=== PATIENT | male | born 1995 | race Caucasian/White ===

== ENCOUNTER 2024-08-30 03:13 | Observation (INO) ==
--- NOTE | 2024-08-30 03:47 | CONSULTATION NOTE ---
History of Present Illness Admitted From Admitted From:: ER History of Present Illness HPI Comment/Other: 29-year-old male with no significant urological history presents today after using a chain as a urethral sound. This is a chain of silver balls that he plac ed into his urethra. After putting in he was unable to pull him back out again. He is draining urine around the balls continuously. He is in mild discomfort. He took some Tylenol. This is his first time having an issue like this He denies prior medical issues, surgical issues. He last had food about 4 hours ago He is hemodynamically stable and afebrile [facility] Active Problems All Active Problems (Updated 08/30/24 @ 03:46 by Quinton Claudio MD) Urethral foreign body (Acute) Social History Social History Do you feel safe in your home environment?: Yes Suffered physical, verbal, emotional, or financial abuse?: No Meds/Allgy Allergies Allergies Allergy/AdvReac Type Severity Reaction Status Date / Time No Known Drug Allergies Allergy Verified 08/30/24 03:33 Exam Exam Vital Signs: Vital Signs x48h Temp Pulse Resp BP Pulse Ox 08/30/24 03:26 36.0 C L 103 H 18 128/99 H 96 NAD RRR CTA b/l silver balls coming from urethra in chain Conclusion/Plan Problem List (1) Urethral foreign body: Plan: Urethral foreign body. Urinating around the foreign body X-ray of pelvis in AP Admit to urology Pain medications N.p.o. Add-on for open removal of bladder foreign object and urethral foreign object. This is an incision through the abdomen. If this is needed then he will need a catheter afterwards for at least 7 days. We discussed the risks of the procedure including infection, bleeding, injury to adjacent structures, need for additional procedures, failure of therapy, urethral strictures, anesthesia concerns we also discussed ejaculatory risk We also discussed that I will attempt to manipulate the foreign body and remove it without an incision. This might involve a cystoscopy as well. We discussed the risk, benefits, alternatives [place] and [place] and he may have difficulty with his flight status after this for a few weeks We discussed we will review this in the future Qualifiers: Encounter type: initial encounter Qualified Code(s): T19.0XXA - Foreign body in urethra, initial encounter
[2024-08-30] MEDS ORDERED: ACETAMINOPHEN 325 MG TABLET PO PRN (03:48)
[2024-08-30] MEDS ORDERED: ONDANSETRON ODT 4 MG TABLET TL PRN (03:48)
[2024-08-30] MEDS ORDERED: SODIUM CHLORIDE FLUSH 0.9% 10 ML SYRINGE IVP PRN (03:48)
--- NOTE | 2024-08-30 03:48 | ED Physician Documentation ---
History of Present Illness Stated complaint Stated Complaint: Chief complaint Chief Complaint: General History obtained from History obtained from: Patient Additonal information Additional information: Patient comes to the emergency department chief complaint of foreign object stuck in urethra. He was using a urethral sounder in the form of a chain of small metal balls when the chain got stuck. He estimates the chain is about a foot long and he thinks that half of it is still up in his urethra. He denies any bleeding other than some blood tingeing of his urine. He has had urine leakage consistently since the change was in place. He denies any trauma to his penis otherwise. No abdominal pain, fever, or vomiting. He is otherwise healthy. No urologic procedures previously. No other complaints at this time. Meds/Allgy Allergies Allergies Allergy/AdvReac Type Severity Reaction Status Date / Time No Known Drug Allergies Allergy Verified 08/30/24 03:33 PFSH Active Problems All Active Problems (Updated 08/30/24 @ 04:09 by Amanda Decker MD) Urethral foreign body (Acute) Social History Social History Relationship: Do you feel safe in your home environment?: Yes Suffered physical, verbal, emotional, or financial abuse?: No Exam Exam Vital Signs: Vital Signs x48h Temp Pulse Resp BP Pulse Ox 08/30/24 03:26 36.0 C L 103 H 18 128/99 H 96 Constitutional normal general appearance and no apparent distress HENMT normocephalic, head/scalp atraumatic, external nose normal and oral mucous membranes normal Eyes EOMs intact bilaterally Neck/C-Spine visual inspection normal and supple Respiratory normal respiratory effort Gastrointestinal nondistended Genitourinary no CVA tenderness Silver chain of falls approximately 5 mm in diameter protruding from the urethra meatus. No blood. Some urine leaking around the balls from the urethra. Neurology Alert, grossly intact Psychiatry mental status grossly normal Skin skin color normal Results Vitals Vitals: Vital Signs - 24 hr 08/30/24 03:26 Temperature 36.0 C L Temperature Source Tympanic Pulse Rate 103 H Respiratory Rate 18 Blood Pressure 128/99 H O2 Saturation 96 O2 Source Room air Pain Intensity 4 Oxygen O2 Source Room air PD Medical Decision Making ED course Complexity details: reviewed old records, reviewed results, re-evaluated patient, considered differential and d/w patient ED course: The patient was well-appearing in the emergency department and Dr. Claudio of urology happened to already be in the department for another patient I was able to consult on this patient right away. He will plan to admit the patient to his service and probably take to OR for removal of the chain later today. A view of the pelvis was obtained. X-ray Showed the chain to be looped up into the bladder and folded back on itself. The plan remains the same with Dr. Claudio, who has viewed the x-ray. Patient expresses understanding of the plan. He has requested something for pain and I have ordered an IV with maintenance fluids Since the patient will be n.p.o. all day, as well as analgesia as the patient is having quite a bit of discomfort. Dr. Claudio has stated he does not need labs at this time. Discharge Plan Discharge Patient Disposition: ED Place in Observation Condition: Stable Clinical Impression: Urethral foreign body Qualifiers: Encounter type: initial encounter Qualified Code(s): T19.0XXA - Foreign body in urethra, initial encounter
[2024-08-30] MEDS: HYDROmorphone 0.5 MG/0.5 ML SYRINGE IVP STA (04:16)
[2024-08-30] MEDS: SODIUM CHLORIDE 0.9% 1,000 ML IV SCH (04:17)
[2024-08-30] MEDS: KETOROLAC 30 MG/ML VIAL IVP STA (04:17)
[2024-08-30] MEDS: HYDROcod/ACETAM 5/325 MG TABLET PO PRN (05:08)
--- NOTE | 2024-08-30 05:25 | XRAY Report ---
PROCEDURE: XR Pelvis 1-2V INDICATIONS: FB urethra/bladder TECHNIQUE: 1 view(s) of the pelvis acquired. COMPARISON: None. FINDINGS: Bones: No fractures or dislocations. No suspicious bony lesions. Soft tissues: Visualized bowel gas pattern is normal. No suspicious soft tissue calcifications. T here is a deviated radiopaque structure overlying the lower pelvis as well as penile region. IMPRESSION: Presumed foreign body overlying the pelvis. The above findings are concordant with preliminary report. Reviewed by: Isa Zacarias MD on 08/30/2024 5:24 AM PDT Approved by: Isa Zacarias MD on 08/30/2024 5:24 AM PDT Station ID: [id number]
--- NOTE | 2024-08-30 09:34 | PHARMACY PROGRESS NOTE ---
Best Possible Medication History Admit Date and Time: 08/30/24 0348 Home Medications Medication Instructions Recorded Confirmed Type No Known Home Medications 08/30/24 08/30/24 History Processed by: Pharmacy (Medication reconciliation completed by pharmacy technician program directorJessica) Medications reviewed in ED?: No Medication History completed: Yes Patient Interview: Completed Secondary Source(s): Insurance records [facility] Statement: As the person ultimately responsible for medication therapy, providers are able to order a medication from an existing home medication list in [facility] via the "Reconcile Routine" prior to Confirmation of that medication by customer support specialist. Such practice is discouraged except when the physician, in their clinical judgment, deems that a medical need exists for a medication without regard to previous use.
[2024-08-30] MEDS: SODIUM CHLORIDE FLUSH 0.9% 10 ML SYRINGE IVP SCH (10:45)
--- NOTE | 2024-08-30 10:52 | ANESTHESIA PROCEDURE NOTE ---
Pre-Anesthesia VS, & Labs Diagnosis Surgical Diagnosis:: urethreal foreign body Procedure Procedure: removal of urethreal foreign body Vitals Vital Signs: Temp Pulse Resp BP Pulse Ox 36.7 C 87 16 118/62 95 08/30/24 07:45 08/30/24 07:45 08/30/24 07:45 08/30/24 07:45 08/30/24 07:45 NPO NPO: >8 hours Meds/Allgy Home Medications Ambulatory Orders Medication Instructions Recorded Confirmed No Known Home Medications 08/30/24 08/30/24 Allergies Allergies Allergy/AdvReac Type Severity Reaction Status Date / Time No Known Drug Allergies Allergy Verified 08/30/24 03:33 PFSH Active Problems All Active Problems Urethral foreign body (Acute) Surgical History Surgical History (Updated 08/30/24 @ 10:52 by Elena Simon CRNA) Hx of tonsillectomy denies any anesthetic complications Family History Family History (Updated 08/30/24 @ 05:03 by BEA Barnard) Grandmother Diabetes Social History Social History Smoking Status: Former smoker Second hand tobacco smoke exposure: No Do you dip or chew tobacco?: No Do you vape?: No Patient requests smoking cessation consult: No Initiate information on smoking cessation: No Smoking Status Details: smoked one pack nine year ago Relationship: Level: Independent Do you feel safe in your home environment?: Yes Suffered physical, verbal, emotional, or financial abuse?: No Substance Use: denies use POLST Patient has POLST: No Exam Exam Vital Signs: Vital Signs x48h Temp Pulse Pulse Resp BP BP Pulse Ox 08/30/24 07:45 36.7 C 87 16 118/62 95 08/30/24 04:45 36.5 C 87 14 143/85 H 96 08/30/24 03:32 101 H 20 128/98 H 99 08/30/24 03:26 36.0 C L 103 H 18 128/99 H 96 Plan Plan Anesthesia Type: General Consent for Procedure(s) Verified and Reviewed: Yes Code Status: Attempt Resuscitation ASA Classification ASA classification: 1-Healthy patient Is this case an emergency?: No
[2024-08-30] MEDS ORDERED: fentaNYL 100 MCG/2 ML VIAL ONE ×2 (16:39→17:56)
[2024-08-30] MEDS ORDERED: MIDAZOLAM 2 MG/2 ML VIAL ONE (16:39)
[2024-08-30] MEDS ORDERED: PROPOFOL 200 MG/20 ML VIAL IVP ONE ×2 (16:39→18:08)
[2024-08-30] MEDS ORDERED: NALOXONE 0.4 MG/ML VIAL IVP PRN (17:43)
[2024-08-30] MEDS ORDERED: ATROPINE ABBOJECT 1 MG/10 ML SYRINGE IVP PRN (17:43)
[2024-08-30] MEDS ORDERED: fentaNYL 100 MCG/2 ML VIAL IVP PRN (17:43)
[2024-08-30] MEDS ORDERED: MORPHINE 2 MG/ML CARPUJECT IVP PRN (17:43)
[2024-08-30] MEDS ORDERED: HYDROmorphone 0.5 MG/0.5 ML SYRINGE IVP PRN (17:43)
[2024-08-30] MEDS ORDERED: ONDANSETRON 4 MG/2 ML VIAL IVP PRN (17:43)
[2024-08-30] MEDS ORDERED: ceFAZolin 1 GM VIAL ONE (17:45)
[2024-08-30] MEDS ORDERED: LIDOCAINE 1%-EPI 1:100000 20 ML MDV ONE (17:58)
[2024-08-30] MEDS ORDERED: ROCURONIUM 50 MG/5 ML VIAL ONE (18:05)
[2024-08-30] MEDS ORDERED: HYDROmorphone 1 MG/ML SYRINGE ONE (18:07)
[2024-08-30] MEDS ORDERED: DEXAMETHASONE 4 MG/ML VIAL ONE (18:15)
[2024-08-30] MEDS ORDERED: ONDANSETRON 4 MG/2 ML VIAL ONE (18:15)
[2024-08-30] MEDS ORDERED: SUGAMMADEX 200 MG/2 ML VIAL IVP ONE (18:16)
--- NOTE | 2024-08-30 18:55 | OPERATIVE REPORT ---
Operative Report General Admit Date: 08/30/24 Procedure Data: Operation Date: 08/30/24 16:30 Proposed Procedures p Flexible Cystoscopy, attempted manipulation of complex bladder foreign body, OPEN REMOVAL IN BLADDER(Not Applicable) - Quinton Claudio MD Anesthesia Type General Pre-Op Diagnosis: urethral foreign body Post Op Diagnosis: urethral foreign body Procedure Note Estimated Blood Loss (ml): 1 Pathology: none Indications: sex toy in urethra and stuck in bladder Findings: Kinked rigid sex toy, unable to manipulate out via cystoscopy Bladder opened to unkink instrument and remove it Complications: none Other Other Information/Narrative: After informed consent was obtained from the patient the patient was brought to the OR and laid in the supine position. The patient was anesthetized per anesthesia protocols. We then performed a formal timeout we confirmed the patient, procedure and laterality. He had a urethral sound sex Tway coming out of his penis. This was fairly rigid though had some manipulation. It was a series of metal balls. We attempted to push these falls into the penis and spin them a little to see if this could straighten out the 620 and pulled out however we are unable to do so. We then prepped and draped him in a sterile fashion. We attempted to keep the sexually sterile as best as possible by covering it with Betadine and then putting a sterile glove over it. A flexible cystoscope was advanced next to the 6 void up into the bladder. We could see the end of the toy, and attempted to push it and manipulate it to straighten out, but we could not do this. We then left the cystoscope in place to fill the bladder. An incision was made in the Suprapubic area extending about 2 inches from the pubic symphysis cranially. 1% lidocaine with epinephrine was used for local. We then used a combination of blunt and cautery dissection to dissect down to the rectus fascia which was incised sharply in the midline. We identified the rectus muscles beneath it and found the midline and bluntly push the muscles away laterally. Sweeping movements were used to sweep the muscle away laterally. We then identified the palpable bladder and used 0 Vicryl suture as stay sutures. Using electrocautery we made a incision vertically into the bladder with clear urine returning. The urine was evacuated out using suction. We could then feel for 620 with her fingers and we pulled it through the incision. We were then able to unkink it and were able to pull the distal end through the penis easily. The bladder was inspected and there were no other masses or lesions or broken pieces seen or felt. The bladder was irrigated copiously with sterile water. A 20 Cypriot two-way Martinez catheter was placed into the bladder with 10 cc in the balloon. The cystotomy was then closed using a running 3-0 Vicryl suture in an mucosal layer. 200 cc of sterile water was placed per the Martinez and showed no leakage. We then closed the muscular layer with 0 Vicryl suture. The bladder was decompressed. The wound site was then copiously irrigated with sterile water. The rectus fascia was closed using a series of [id number] 0 Vicryl suture. The wound was irrigated again. The deep dermal skin was closed using 3-0 Vicryl suture and then the skin was closed using 4-0 Monocryl suture and Mastisol and Steri-Strips and gauze and Tegaderm This concluded procedure and the patient tolerated procedure well. He was brought to the PACU without further incident. He will be kept overnight and sent home tomorrow. I will follow-up with 10 days of antibiotics and have the catheter removed in 10 days. I will see him in 6 weeks
--- NOTE | 2024-08-30 19:21 | ANESTHESIA POST OP EVALUATION ---
Anesthesia Post Eval Post Anesthesia Eval Vitals: Last Vital Signs Temp 36.8 C 08/30/24 19:10 Pulse 95 08/30/24 19:10 Resp 18 08/30/24 19:10 BP 140/85 H 08/30/24 19:10 Pulse Ox 97 08/30/24 19:10 CV Function Including HR & BP: Stable Pain Control: Satisfactory Nausea & Vomiting: Negative Mental Status: Baseline Respiratory Status: Airway Patent Hydration Status: Satisfactory Anesthesia Complications: None
[2024-08-30] MEDS: ceFAZolin (2G) 2 GM in SODIUM CHLORIDE 0.9% MINIBAG 100 ML IV ONE (19:35)
[2024-08-30] MEDS: LACTATED RINGERS 1,000 ML IV SCH (19:41)
[2024-08-31] MEDS: ceFAZolin 2 GM VIAL IVP SCH (02:35)
[2024-08-31] MEDS: SOLIFENACIN SUCCINATE 5 MG TABLET PO SCH (08:16)
[2024-08-31 08:47] VITALS: BP 127/80; TEMP 98.1; O2SAT 94
--- NOTE | 2024-09-01 10:32 | PROVIDER PROGRESS NOTE ---
Subjective Prog Note Date Prog Note Date: 08/31/24 Prog Note Time: 10:00 Subjective Pt reports feeling: Improved Subjective: Feeling very well. No issues after the procedure. Tolerating diet. Ambulating Objective Vital Signs/Intake & Output Reviewed Vital Signs: Yes Intake & Output: Intake & Output 08/29/24 08/30/24 08/31/24 09/01/24 23:59 23:59 23:59 23:59 Intake Total 3133 / 3133 2720 / 2720 Output Total 500 / 500 2100 / 2100 Balance 2633 / 2633 620 / 620 Weight (kg) 93.5 kg Objective General Appearance: positive No acute distress (NAD lying in bed, dressing c/d/i, mcpherson in place CYU) Assessment/Plan Problem List (1) Urethral foreign body: Impression: Doing well after surgery. Home today with Mcpherson catheter in place for 10 days Home with pain medications, stool softeners, antibiotics, bladder spasm medications Patient states understanding and agrees to the above plan. All questions answered Qualifiers: Encounter type: initial encounter Qualified Code(s): T19.0XXA - Foreign body in urethra, initial encounter
== END 2024-08-31 11:00 | disposition home or self-care (01) ==
LOC: ED 03:13 → MS2 03:13
PROVIDERS: ADMIT Urology; ATTEND Urology